=== PATIENT | female | born 1985 | race Caucasian/White ===

== ENCOUNTER 2022-06-28 00:18 | Inpatient (IN) | payer MEDICAID ==
[~2022-06-28] VITALS: Ht 157.5 cm; Wt 76.7 kg
[~2022-06-28 00:18] MED LIST: IBUP-974 PO
[2022-06-28] MEDS ORDERED: PNV91TAB8 PO (00:44)
[2022-06-28] MEDS ORDERED: OXYTOCIN 10 UNITS/ML VIAL IM SCH (00:45)
[2022-06-28] MEDS ORDERED: METHYLERGONOVINE 0.2 MG/ML AMP IM PRN ×2 (00:45→04:25)
[2022-06-28] MEDS ORDERED: NALBUPHINE 10 MG/ML AMP IVP PRN (00:45)
[2022-06-28] MEDS ORDERED: LACTATED RINGERS 500 ML IV SCH (00:45)
[2022-06-28] MEDS ORDERED: CARBOPROST 250 MCG/ML AMP IM PRN (00:45)
[2022-06-28] MEDS ORDERED: AMPICILLIN 2,000 MG in NACL 0.9% MINI-BAG PLUS 100 ML IV SCH (00:45)
[2022-06-28] MEDS ORDERED: LACTATED RINGERS 1,000 ML IV SCH (00:45)
[2022-06-28] MEDS ORDERED: ONDANSETRON 4 MG/2 ML VIAL IVP PRN (00:50)
[2022-06-28] MEDS ORDERED: OXYTOCIN 20 UNITS in LACTATED RINGERS 1,000 ML IV SCH (00:50)
[2022-06-28 01:11] LABS: BASOPHILS % (AUTO) 0.6 % (0.0-2.0); EOSINOPHILS # (AUTO) 0.1 K/uL (0-0.4); EOSINOPHILS % (AUTO) 0.8 % (0.0-4.0); HEMATOCRIT 38.9 % (36-48); HEMOGLOBIN 13.3 g/dL (12.0-16.0); LYMPHOCYTES # (AUTO) 1.5 K/uL (2.5-16.5); MEAN CORPUSCULAR HEMOGLOBIN 30 pg (27-31); MEAN CORPUSCULAR HGB CONC 34 g/dL (33-37); MEAN CORPUSCULAR VOLUME 88.5 fL (80-94); MONOCYTES # (AUTO) 0.6 K/uL (0.8-1.0); MONOCYTES % (AUTO) 9.7 % (1.7-9.3); NEUTROPHILS % (AUTO) 63.9 % (42.2-75.2); PLATELET COUNT (AUTO) 110 K/uL (140-450); RED CELL DISTRIBUTION WIDTH 15.4 % (11.6-13.7); WHITE BLOOD COUNT (AUTO) 6.2 K/uL (4.8-10.8)
[2022-06-28] MEDS ORDERED: AMPICILLIN 2,000 MG VIAL ONE (01:14)
[2022-06-28 01:20] LABS: APPEARANCE,URINE CLEAR (CLEAR); BILIRUBIN,URINE NEGATIVE (NEGATIVE); BLOOD, URINE 3+ (NEGATIVE); COLOR,URINE YELLOW (YELLOW); LEUKOCYTE ESTERASE ,URINE NEGATIVE (NEGATIVE); NITRITE, URINE NEGATIVE (NEGATIVE); UGLUCOSE NEGATIVE (NEGATIVE)
[2022-06-28 01:24] LABS: PROTHROMBIN TIME 9.6 secs (10.8-13.4)
[2022-06-28 01:26] LABS: ALBUMIN 3.3 g/dL (3.4-5.0); ANION GAP 15.7 (8-16); CARBON DIOXIDE 19.2 mmol/L (21-32); CREATININE 0.5 mg/dL (0.6-1.3); POTASSIUM 3.9 mmol/L (3.5-5.1); TOTAL BILIRUBIN 0.3 mg/dL (0.0-1.0)
[2022-06-28 01:33] LABS: BARBITURATE, URINE NEGATIVE ng/ml (NEG <=200); BENZODIAZEPINE, URINE NEGATIVE ng/mL (NEG <=200); CANNABINOID, URINE NEGATIVE ng/mL (NEG <=50); COCAINE, URINE NEGATIVE ng/mL (NEG <=300); OPIATE, URINE NEGATIVE ng/mL (NEG <=2000); PHENCYCLIDINE SCREEN,URINE NEGATIVE ng/mL (NEG <=25)
[2022-06-28 01:34] LABS: RBC,URINE 0-5 /HPF (0-5); WBC,URINE 0-5 /HPF (0-5)
[2022-06-28 01:38] VITALS: BP 111/65
[2022-06-28] MEDS ORDERED: OXYTOCIN 20 UNITS/LR PREMIX 1,000 ML IV ONE ×2 (03:19→07:02)
[2022-06-28] MEDS ORDERED: AMPICILLIN 1,000 MG in NACL 0.9% MINI-BAG PLUS 50 ML IV SCH (04:00)
[2022-06-28] MEDS ORDERED: METHYLERGONOVINE 0.2 MG TAB PO PRN (04:25)
[2022-06-28] MEDS ORDERED: BENZOCAINE/MENTHOL 20%-0.5% 60 GM CAN TP PRN (04:25)
[2022-06-28] MEDS ORDERED: OXYTOCIN 10 UNITS/ML VIAL IM PRN (04:25)
[2022-06-28] MEDS ORDERED: TEMAZEPAM 15 MG CAP PO PRN (04:25)
[2022-06-28] MEDS ORDERED: oxyCODONE/APAP 5/325 MG 1 TAB TAB PO PRN ×2 (04:25)
[2022-06-28] MEDS ORDERED: LIDOCAINE 1% 500 MG/50 ML VIAL ONE (04:34)
[2022-06-28] MEDS ORDERED: IBUPROFEN 800 MG TAB PO PRN (05:05)
[2022-06-28] MEDS ORDERED: LIDOCAINE 1% 500 MG/ 50 ML VIAL INJ SCH (05:05)
[2022-06-28] MEDS ORDERED: MISOPROSTOL 200 MCG TAB ONE (06:53)
[2022-06-28] MEDS ORDERED: MISOPROSTOL 100 MCG TAB RC SCH (07:10)
[2022-06-28] MEDS ORDERED: MORPHINE SULFATE 4 MG/ML SYR IVP PRN ×2 (07:50→07:55)
--- NOTE | 2022-06-28 09:18 | NUR ---
PATIENT HAS BEEN SCREENED AND CATEGORIZED LOW NUTRITION RISK. PATIENT WILL BE SEEN WITHIN 7 DAYS OF ADMISSION. 07/05/22 REVIEWED BY [address]
[2022-06-28] MEDS ORDERED: DOCUSATE SOD/SENNA 50/8.6 MG 1 TAB PO SCH (21:00)
[2022-06-29 05:36] LABS: HEMATOCRIT 29.1 % (36-48); HEMOGLOBIN 10.2 g/dL (12.0-16.0)
[2022-06-29] MEDS: IBUPROFEN 800 MG TAB PO PRN (20:25)
[2022-06-30] MEDS: IBUPROFEN 800 MG TAB PO PRN (08:13)
== END 2022-06-30 12:30 | disposition home or self-care (01) | DRG 560 ==
LOC: MLD 00:18 → OBSVTOIN 00:42 → MFCC 12:00
PROVIDERS: ADMIT Obstetrics & Gynecology; ATTEND Obstetrics & Gynecology
PROC: 10D07Z6 Extraction of Products of Conception, Vacuum, Via Natural or Artificial Opening (ICD-10-PCS; principal; 2022-06-28)
PROC: 0HQ9XZZ Repair Perineum Skin, External Approach (ICD-10-PCS; 2022-06-28)
DX: O69.81X0 Labor and delivery complicated by cord around neck, without compression, not applicable or unspecified (principal); Z37.0 Single live birth; D62 Acute posthemorrhagic anemia; O70.0 First degree perineal laceration during delivery; O77.0 Labor and delivery complicated by meconium in amniotic fluid; Z20.822 Contact with and (suspected) exposure to COVID-19; Z3A.39 39 weeks gestation of pregnancy
CPT/HCPCS: 36415; 80053; 80305; 81001; 85018; 85025; 85610; 85730; 86592; 86886; 86900; 86901; 87086; 90715; J0290; J2001; J2210; J2270; J2300; J2405; J2590